=== PATIENT | female | born 1955 | race Caucasian/White ===

== ENCOUNTER 2017-09-30 12:20 | Inpatient (IN) | payer MEDICAID ==
[~2017-09-30] VITALS: Ht 162.6 cm; Wt 81.1 kg
[2017-09-30 12:48] LABS: GLUCOSE,POINT OF CARE 136 MG/DL (70-110)
[2017-09-30] MEDS ORDERED: FLUT16H NASAL (12:51)
[2017-09-30] MEDS ORDERED: METF500T4 PO (12:51)
[2017-09-30] MEDS ORDERED: MONT10TA21 PO (12:51)
[2017-09-30] MEDS ORDERED: AZIT250T9 PO (12:51)
[2017-09-30] MEDS ORDERED: AMLO-97 PO (12:51)
[2017-09-30] MEDS ORDERED: INDA2.5 PO (12:51)
[2017-09-30] MEDS ORDERED: SODIUM CHLORIDE 0.9% 1,000 ML IV ONE ×3 (13:15→16:15)
[2017-09-30] MEDS ORDERED: ONDANSETRON HCL 4 MG/2 ML VIAL IVP ONE (13:15)
[2017-09-30] MEDS ORDERED: ACETAMINOPHEN 500 MG TABLET PO ONE (13:15)
[2017-09-30 14:01] LABS: BASOPHILS # (AUTO) 0.01 K/uL (0.00-0.20); BASOPHILS % (AUTO) 0.1 % (0.0-2.0); EOSINOPHILS # (AUTO) 0.01 K/uL (0.00-0.70); HEMATOCRIT 41.7 % (36-46); HEMOGLOBIN 13.8 g/dL (12.0-16.0); LYMPHOCYTES # (AUTO) 0.2 K/uL (1.0-4.8); LYMPHOCYTES % (AUTO) 2.1 % (22.0-44.0); MEAN CORPUSCULAR HEMOGLOBIN 28.8 pg (26.0-34.0); MEAN CORPUSCULAR VOLUME 87 fL (80-100); MONOCYTES % (AUTO) 9.4 % (2.0-9.0); NEUTROPHILS # (AUTO) 9.5 K/uL (1.8-7.7); PLATELET COUNT (AUTO) 297 K/uL (150-450); RED BLOOD CELL COUNT(AUTO) 4.77 MIL/uL (4.00-5.20); RED CELL DISTRIBUTION WIDTH 13.8 % (11.5-14.5); WHITE BLOOD COUNT (AUTO) 10.7 K/uL (4.5-11.0)
[2017-09-30 14:03] LABS: NEUTROPHILS % (AUTO) 88.3 % (40.0-70.0)
[2017-09-30 14:21] LABS: ANION GAP 11 mmol/L (8-16); CALCIUM, TOTAL 9.3 mg/dL (8.8-10.5); CARBON DIOXIDE 27 mmol/L (22-29); CHLORIDE 100 mmol/L (98-107); CREATININE 0.77 mg/dL (0.60-1.30); GLOMERULAR FILTR. RATE CALC > 60 mL/min (>60); POTASSIUM 3.4 mmol/L (3.5-5.1); SODIUM SERUM 138 mmol/L (136-145); UREA NITROGEN, BLOOD 9 mg/dL (7-18)
[2017-09-30 14:33] LABS: ALANINE AMINOTRANSFERASE 63 U/L (12-78); ALBUMIN 3.5 g/dL (3.4-5.0); ASPARTATE AMINOTRANSFERASE 29 U/L (15-37); BILIRUBIN,TOTAL 0.3 mg/dL (0.1-1.0); TOTAL PROTEIN, SERUM 8.1 g/dL (6.4-8.2)
[2017-09-30 14:40] LABS: INFLUENZA TYPE B NEGATIVE FOR TYPE B (NEGATIVE)
[2017-09-30 14:43] LABS: LACTIC ACID 3.2 mmol/L (0.4-2.0)
[2017-09-30] MEDS ORDERED: OSELTAMIVIR PHOSPHATE 75 MG CAPSULE PO ONE (15:00)
[2017-09-30 15:17] LABS: APPEARANCE,URINE CLOUDY (CLEAR); GLUCOSE, URINE (UA) NEGATIVE (NEGATIVE); KETONES,URINE NEGATIVE (NEGATIVE); LEUKOCYTE ESTERASE ,URINE TRACE (NEGATIVE); OCCULT BLOOD,URINE LARGE (NEGATIVE); PH,URINE 5.5 (5.0-8.0); PROTEIN,URINE SEE CONFIRM (NEGATIVE)
[2017-09-30 15:33] LABS: SULFOSALICYLIC ACID,URINE 1+ (Negative)
[2017-09-30 15:36] LABS: SQUAMOUS EPITHELIAL CELL,UR Few /LPF (None Seen); WBC,URINE 0-2 /HPF (0-5)
[2017-09-30] MEDS ORDERED: IBUPROFEN 600 MG TABLET PO ONE (15:45)
[2017-09-30 15:59] LABS: REFLEX LACTIC ACID? YES YES
[2017-09-30] MEDS ORDERED: POTASSIUM CHL 10 MEQ/WATER 50 ML IV PRN (16:15)
[2017-09-30] MEDS ORDERED: POTASSIUM CHLORIDE 20 MEQ ER TABLET PO PRN (16:15)
[2017-09-30] MEDS ORDERED: ACETAMINOPHEN 325 MG TABLET PO PRN (16:15)
[2017-09-30] MEDS ORDERED: INSULIN ASPART 100 UNITS/ML SQ PRN (16:15)
[2017-09-30] MEDS ORDERED: DEXTROSE 50%-WATER 25 GM/50 ML SYRINGE IVP PRN (16:15)
[2017-09-30] MEDS ORDERED: MAGNESIUM HYDROXIDE SUSPENSION 30 ML UDCUP PO PRN (16:15)
[2017-09-30 16:28] LABS: GLUCOSE,POINT OF CARE 118 MG/DL (70-110)
[2017-09-30 17:31] VITALS: BP 96/59
[2017-09-30 19:36] VITALS: BP 93/56
[2017-09-30] MEDS ORDERED: PNEUMOCOCCAL VACCINE POLYVALENT 0.5 ML VIAL [PPSV23] IM ONE (19:45)
[2017-09-30] MEDS ORDERED: INFLUENZA VIRUS VACCINE QVS 2017-18 (3YR+)/PF 60 MCG/0.5 ML SYRINGE IM ONE (19:45)
[2017-09-30] MEDS: DOCUSATE SODIUM 100 MG CAPSULE PO SCH (20:50)
[2017-09-30] MEDS: OSELTAMIVIR PHOSPHATE 75 MG CAPSULE PO SCH (20:51)
[2017-09-30 23:32] LABS: GLUCOSE,POINT OF CARE 113 MG/DL (70-110)
[2017-09-30 23:36] VITALS: BP 93/57
[2017-10-01 03:40] VITALS: BP 99/58
[2017-10-01 06:57] LABS: GLUCOSE,POINT OF CARE 112 MG/DL (70-110)
[2017-10-01 07:09] VITALS: BP 112/66
[2017-10-01] MEDS: OSELTAMIVIR PHOSPHATE 75 MG CAPSULE PO SCH (07:34)
[2017-10-01] MEDS: DOCUSATE SODIUM 100 MG CAPSULE PO SCH (07:34)
[2017-10-01] MEDS ORDERED: PANTOPRAZOLE SODIUM 40 MG DR TABLET PO SCH (09:00)
[2017-10-01 11:07] VITALS: BP 105/57
[2017-10-01] MEDS ORDERED: OSEL75 PO (13:16)
== END 2017-10-01 13:00 | disposition home or self-care (01) | DRG 139 ==
LOC: EMS 12:22 → EDBD 12:22 → 6N 16:08
PROVIDERS: ADMIT Internal Medicine; ATTEND Internal Medicine
DX: J09.X1 Influenza due to identified novel influenza A virus with pneumonia (principal); J12.89 Other viral pneumonia; E11.9 Type 2 diabetes mellitus without complications; Z79.899 Other long term (current) drug therapy; Z88.0 Allergy status to penicillin; Z90.49 Acquired absence of other specified parts of digestive tract; Z83.3 Family history of diabetes mellitus
CPT/HCPCS: 82962; 83605; 84132; 87804; 96360; 96361; 96374; 99285; J2405; J7030